=== PATIENT | male | born 1955 | race Caucasian/White ===

== ENCOUNTER → 2020-12-10 | Outpatient (CLI) | payer MEDICARE ==
[~2020-12-10] MED LIST: ABILIFY10 MG PO; ABILIFY20 MG PO; AMIODARONE HCL200 MG PO; ANORO ELLIPTA1 EACH INH; ANUSOL HC SUPP1 SUPP PR; ASPIR 8181 MG PO; ASPIRIN EC81 MG PO; ATORVASTATIN CA40 MG PO; BRILINTA90 MG PO; BUSPIRONE HCL10 MG PO; BUSPIRONE HCL7.5 MG PO; CETIRIZINE HCL10 MG PO; CITALOPRAM HBR20 MG PO; DEPAKOTE500 MG PO; ELIQUIS2.5 MG PO; FEOSOL325 MG PO; FLOMAX 0.4 MG0.4 MG PO; FLOMAX0.4 MG PO; FLUTICASONE; FLUTICASONE PROPIONA; GLIPIZIDE10 MG PO; GLUCOTROL5 MG PO; HYDROCODON-ACE1 EAC4 PO; ISOSORBIDE MONO30 MG PO; LEVEMIR100 UNIT/1 SQ; LEVOFLOXACIN500 MG PO; LIPITOR TAB 2020 MG PO; LISINOPRIL10 MG PO; LISINOPRIL20 MG PO; LOPRESSOR50 MG PO; METFORMIN HCL1000 MG PO; METOPROLOL TART50 MG PO; NITROSTAT 0.40.4 MG SL; NORVASC 5 MG TAB5 MG PO; NOVOLIN R; NOVOLIN R100 UNIT/1 SC; PANTOPRAZOLE SO40 MG PO; PLAVIX 75 MG TA75 MG PO; PLAVIX75 MG PO; PROZAC 20 MG CA20 MG PO; RANITIDINE HCL PO; REQUIP0.5 MG PO; STOOL SOFTENER100 MG PO; TRADJENTA5 MG PO; TRAZODONE HCL50 MG PO; TRULICITY1.5 MG/0.5 SQ; VALIUM 5 MG TAB5 MG PO; VENTOLIN/PROVE0.5 ML INH; VOLTAREN100 GM TP
== END ==
LOC: HEART 5 11-26 13:30
DX: I48.91 Unspecified atrial fibrillation (principal); I10 Essential (primary) hypertension

== ENCOUNTER → 2021-01-28 | Outpatient (CLI) | payer MEDICARE ==
[2021-01-28 12:16] LABS: HEMOGLOBIN 14.1 gm/dl (14.0-17.5); RED BLOOD COUNT 4.76 M/UL (4.20-5.50); WHITE BLOOD COUNT 6.9 K/UL (4.5-11.0)
[2021-01-28 12:35] LABS: BUN/CREATININE RATIO 15 (0-10)
== END ==
LOC: LAB 11:15
PROVIDERS: Internal Medicine Cardiovascular Disease; Physician Assistant Surgical
DX: I47.2 Ventricular tachycardia (principal); I48.91 Unspecified atrial fibrillation; I10 Essential (primary) hypertension; I25.5 Ischemic cardiomyopathy; E78.5 Hyperlipidemia, unspecified; Z20.822 Contact with and (suspected) exposure to COVID-19
CPT/HCPCS: 36415; 80053; 80061; 85025; U0003

== ENCOUNTER 2021-01-30 09:38 | Outpatient (CLI) | payer MEDICARE, MEDICAID ==
[~2021-01-30] VITALS: Ht 182.9 cm; Wt 82.6 kg
[~2021-01-30 09:38] MED LIST changes: -ABILIFY10 MG PO; -AMIODARONE HCL200 MG PO; -HYDROCODON-ACE1 EAC4 PO; -ISOSORBIDE MONO30 MG PO; -LEVOFLOXACIN500 MG PO; -PLAVIX75 MG PO; -PROZAC 20 MG CA20 MG PO; -STOOL SOFTENER100 MG PO; -TRAZODONE HCL50 MG PO; -TRULICITY1.5 MG/0.5 SQ; -VALIUM 5 MG TAB5 MG PO
[2021-01-30] MEDS ORDERED: ISOSORBIDE MONO30 MG PO (10:30)
[2021-01-30] MEDS ORDERED: ABILIFY10 MG PO (10:41)
[2021-01-30] MEDS ORDERED: PROZAC 20 MG CA20 MG PO (10:42)
[2021-01-30] MEDS ORDERED: VALIUM 5 MG TAB5 MG PO (10:42)
[2021-01-30] MEDS ORDERED: PLAVIX75 MG PO (10:43)
[2021-01-30] MEDS ORDERED: TRULICITY1.5 MG/0.5 SQ (10:44)
[2021-01-30] MEDS ORDERED: TRAZODONE HCL50 MG PO (10:44)
[2021-01-30] MEDS ORDERED: STOOL SOFTENER100 MG PO (10:45)
[2021-01-30] MEDS ORDERED: AMIODARONE HCL200 MG PO (17:23)
[2021-01-30] MEDS ORDERED: LEVOFLOXACIN500 MG PO (17:23)
[2021-01-30] MEDS ORDERED: HYDROCODON-ACE1 EAC4 PO (17:23)
--- NOTE | 2021-01-30 17:30 | NUR ---
PT ARRIVED TO UNIT, ALERT AND ORIENTED X 3, PLACED ON HEART MONITOR AND O2 MONITOR, VSS AT THIS TIME, SHEATH SITE CDI--NO REDNESS, SWELLING, NOR OOZING, LEFT CHEST AICD DRESSING INTACT. WILL CONTINUE TO MONITOR
== END 2021-01-31 14:56 | disposition home or self-care (01) ==
LOC: CATH 09:38 → PROG CARE 17:40 → CATH 01-31 14:56
DX: I47.2 Ventricular tachycardia (principal); I25.119 Atherosclerotic heart disease of native coronary artery with unspecified angina pectoris; I25.2 Old myocardial infarction; I25.5 Ischemic cardiomyopathy; I10 Essential (primary) hypertension; I48.19 Other persistent atrial fibrillation; E11.9 Type 2 diabetes mellitus without complications; J44.9 Chronic obstructive pulmonary disease, unspecified; E78.5 Hyperlipidemia, unspecified; F12.90 Cannabis use, unspecified, uncomplicated; G47.30 Sleep apnea, unspecified; Z98.61 Coronary angioplasty status; Z87.891 Personal history of nicotine dependence; Z79.2 Long term (current) use of antibiotics; Z79.01 Long term (current) use of anticoagulants; Z79.4 Long term (current) use of insulin; Z79.899 Other long term (current) drug therapy
CPT/HCPCS: 33249; 71045; 82962; 93620; 93641; 99152; 99153; C1721; C1730; C1766; C1777; C1898; J1200; J1644; J2250; J3010; J3370; J7040; J7050; J7070

== ENCOUNTER 2021-02-16 10:07 | Emergency (ER) | payer MEDICARE ==
[~2021-02-16 10:07] MED LIST changes: +ABILIFY10 MG PO; +AMIODARONE HCL200 MG PO; +HYDROCODON-ACE1 EAC4 PO; +ISOSORBIDE MONO30 MG PO; +LEVOFLOXACIN500 MG PO; +PLAVIX75 MG PO; +PROZAC 20 MG CA20 MG PO; +STOOL SOFTENER100 MG PO; +TRAZODONE HCL50 MG PO; +TRULICITY1.5 MG/0.5 SQ; +VALIUM 5 MG TAB5 MG PO
[2021-02-16 11:54] LABS: HEMOGLOBIN 13.2 gm/dl (14.0-17.5); RED BLOOD COUNT 4.47 M/UL (4.20-5.50); WHITE BLOOD COUNT 6.1 K/UL (4.5-11.0)
[2021-02-16 12:09] LABS: BUN/CREATININE RATIO 26 (0-10)
== END 2021-02-16 13:15 | disposition home or self-care (01) ==
LOC: ER1 10:07
PROVIDERS: Internal Medicine
DX: I95.9 Hypotension, unspecified (principal); I25.10 Atherosclerotic heart disease of native coronary artery without angina pectoris; J44.9 Chronic obstructive pulmonary disease, unspecified; E11.9 Type 2 diabetes mellitus without complications; I48.91 Unspecified atrial fibrillation; Z95.1 Presence of aortocoronary bypass graft
CPT/HCPCS: 71045; 80053; 84484; 85025; 85610; 85730; 93005; 99285

== ENCOUNTER → 2021-03-05 | Outpatient (CLI) | payer MEDICARE | LOC: HEART 5 08:42 | DX: J44.9 Chronic obstructive pulmonary disease, unspecified (principal); R55 Syncope and collapse; Z79.899 Other long term (current) drug therapy | CPT/HCPCS: 94010; 94729 ==

== ENCOUNTER → 2021-05-11 | Outpatient (CLI) | payer MEDICARE | LOC: CATH 09:43 | DX: R55 Syncope and collapse (principal); I20.9 Angina pectoris, unspecified; I25.10 Atherosclerotic heart disease of native coronary artery without angina pectoris; I48.91 Unspecified atrial fibrillation; I25.810 Atherosclerosis of coronary artery bypass graft(s) without angina pectoris; E78.5 Hyperlipidemia, unspecified; I10 Essential (primary) hypertension; I25.5 Ischemic cardiomyopathy; Z79.899 Other long term (current) drug therapy; I47.2 Ventricular tachycardia | CPT/HCPCS: 36415; 80076; 84439; 84443 ==

== ENCOUNTER → 2021-05-12 | Outpatient (CLI) | payer MEDICARE | LOC: LAB 13:25 | DX: E78.5 Hyperlipidemia, unspecified (principal) | CPT/HCPCS: 36415; 80061; 80076 ==

== ENCOUNTER → 2022-06-22 | Outpatient (CLI) | payer MEDICARE | LOC: HEART 5 09:58 | DX: R06.02 Shortness of breath (principal); Z79.899 Other long term (current) drug therapy | CPT/HCPCS: 94010; 94729 ==

== ENCOUNTER → 2022-06-23 | Outpatient (CLI) | payer MEDICARE | LOC: ECHO 09:15 | DX: I48.91 Unspecified atrial fibrillation (principal); R06.02 Shortness of breath; I07.1 Rheumatic tricuspid insufficiency; I27.20 Pulmonary hypertension, unspecified | CPT/HCPCS: ECHO; 93306 ==